=== PATIENT | male | born 1975 | race Caucasian/White ===

== ENCOUNTER 2017-12-08 19:03 | Emergency (ER) | payer SELFPAY ==
[~2017-12-08] VITALS: Ht 175.3 cm; Wt 85.4 kg
[2017-12-08 19:05] VITALS: BP 146/95
--- NOTE | 2017-12-08 20:14 | NUR ---
1ST ATTEMPT FOR BED CALL, NO ANSWER.
--- NOTE | 2017-12-08 20:15 | NUR ---
PATIENT LEFT WITHOUT BEING SEEN BY DR. JUNIOR. NO FURTHER CARE PROVIDED FOR PATIENT.
== END 2017-12-08 20:15 | disposition left against medical advice (07) ==
LOC: MED 19:03
DX: R21 Rash and other nonspecific skin eruption (principal); Z53.21 Procedure and treatment not carried out due to patient leaving prior to being seen by health care provider

== ENCOUNTER 2018-06-10 13:14 | Emergency (ER) | payer SELFPAY ==
[~2018-06-10] VITALS: Ht 175.3 cm; Wt 77.2 kg
[2018-06-10 13:14] VITALS: BP 136/63
--- NOTE | 2018-06-10 13:30 | NUR ---
PT BIB PD AMBULATED TO [facility]
[2018-06-10 13:34] VITALS: BP 141/85
[2018-06-10 14:20] VITALS: BP 138/72
--- NOTE | 2018-06-10 14:20 | NUR ---
PT BIB PD FOR PREBOOK C/O R WRIST PAIN 08/15 X 2 WEEKS. NO OBVIOUS DEFORMITY, CMS INTACT. NO OTHER COMPLAINTS.
--- NOTE | 2018-06-10 14:20 | NUR ---
Patient discharged with v/s stable. Written and verbal after care instructions given and explained. Patient alert, oriented and verbalized understanding of instructions. Ambulatory with steady gait. All questions addressed prior to discharge. ID band removed. Patient advised to follow up with PMD. Rx of NAPROSYN given. Patient educated on indication of medication including possible reaction and side effects. Opportunity to ask questions provided and answered. LEFT IN STABLE CONDITION WITH PD.
== END 2018-06-10 14:20 ==
LOC: MED 13:14
DX: S30.0XXA Contusion of lower back and pelvis, initial encounter (principal); M25.531 Pain in right wrist; F17.200 Nicotine dependence, unspecified, uncomplicated; V00.131A Fall from skateboard, initial encounter; Z79.891 Long term (current) use of opiate analgesic; Y93.51 Activity, roller skating (inline) and skateboarding; Y92.89 Other specified places as the place of occurrence of the external cause; Y99.8 Other external cause status
CPT/HCPCS: 73110; 99283